=== PATIENT | female | born 1975 | race Two or more races ===

== ENCOUNTER 2025-08-15 17:22 | Inpatient (IN) | payer BC, OTHER ==
[~2025-08-15] VITALS: Ht 154.9 cm; Wt 59.0 kg
--- NOTE | 2025-08-15 17:59 | ED.PDOC ---
History of Present Illness HPI Comments 49 y/o Vincentian-speaking F is BIBA for c/c nonradiating, diffused abdominal pain, nausea, and vomiting. Patient endorses on sudden, unprovoked, and atraumatic onset of symptoms 10 hours ago. Pain is stated to be constant in quality. No reported recent travel, sick contact, spoiled food consumption, or further pertinent events or history. Denies on having any bilious or bloody vomitus, diarrhea, fever, chills, or further associated symptoms. Per EMS report, patient's vitals were within normal limits. Chief Complaint: Nausea/Vomiting Time Seen by MD: 17:45 Reviewed Notes: Nurses Notes, Political Science Faculty Member Notes, Medications, Allergies Home Meds Active Scripts Acetaminophen (Acetaminophen) 500 Mg Tab, 500 MG PO Q4HP PRN, #30 TAB Prov:MAYRA HANEY PAC 08/15/25 Ondansetron Odt 4MG Tab (ZOFRAN PO) 4 Mg Tb, 4 MG PO Q6HP PRN, #15 TAB ODT TAB-DISSOLVE IN MOUTH, THEN SWALLOW Prov:MAYRA HANEY PAC 08/15/25 Metoclopramide Hcl (Reglan) 10 Mg Tab, 10 MG PO Q8HP PRN, #15 TAB Prov:MAYRA HANEY [facility] 08/15/25 Information Source: Patient, Emergency Med Personnel Mode of Arrival: EMS Severity: Moderate Timing: Hours Duration: Since onset Prehospital treatment: 12 Lead EKG, Accucheck, Window Tinter Past Medical History PAST MEDICAL HISTORY: DM, HTN, Denies Surgical History: Denies all surgeries 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 Hx Family History Family History: Unknown Social History Smoker: Non-Smoker Alcohol: Denies ETOH Use Drugs: Denies Drug Use Lives In: Home Constitutional: denies: chills, diaphoresis, fatigue, fever, malaise, sweats, weakness, others EENTM: denies: blurred vision, double vision, ear bleeding, ear discharge, ear drainage, ear pain, ear ringing, eye pain, eye redness, hearing loss, mouth pain, mouth swelling, nasal discharge, nose bleeding, nose congestion, nose pain, photophobia, tearing, throat pain, throat swelling, voice changes, others Respiratory: denies: cough, hemoptysis, orthopnea, SOB at rest, shortness of breath, SOB with excertion, stridor, wheezing, others Cardiovascular: denies: chest pain, dizzy spells, diaphoresis, Dyspnea on exertion, edema, irregular heart beat, left arm pain, lightheadedness, palpitations, PND, syncope, others Gastrointestinal: reports: abdominal pain, nausea, vomiting; denies: abdomen distended, blood streaked bowels, constipated, diarrhea, dysphagia, difficulty swallowing, hematemesis, melena, poor appetite, poor fluid intake, rectal bleeding, rectal pain, others Genitourinary: denies: abnormal vagina bleeding, burning, dyspareunia, dysuria, flank pain, frequency, hematuria, incontinence, pain, , vagina discharge, urgency, others Neurological: denies: dizziness, fainting, headache, left sided numbness, left sided weakness, numbness, paresthesia, pre-existing deficit, right sided numbness, right sided weakness, seizure, speech problems, tingling, tremors, weakness, others Musculoskeletal: denies: back pain, gout, joint pain, joint swelling, muscle pain, muscle stiffness, neck pain, others Integumetry: denies: bruises, change in color, change in hair/nails, dryness, laceration, lesions, lumps, rash, wounds, others Allergic/Immunocompromised: denies: Difficulty Healing, Frequent Infections, Hives, Itching, others Hematologic/Lymphatic: denies: anemia, blood clots, easy bleeding, easy bruising, swollen glands, others Endocrine: denies: excessive hunger, excessive sweating, excessive thirst, excessive urination, flushing, intolerance to cold, intolerance to heat, unexplained weight gain, unexplained weight loss, others Psychiatric: denies: anxiety, bipolar disorder, depression, hopeless, panic disorder, schizophrenia, sleepless, suicidal, others All Other Systems: Reviewed and Negative (Comprehensive systems review obtained and negative except for what is stated in the HPI.) Physical Exam General Appearance: Moderate Distress (Patient was vomiting at time of evaluation and looked moderately toxic.), Normal HEENT: Normal ENT Inspection, Pharynx Normal, TMs Normal Neck: Full Range of Motion, Non-Tender, Normal, Normal Inspection Respiratory: Chest Non-Tender, Lungs Clear, No Accessory Muscle Use, No Respiratory Distress, Normal Breath Sounds Cardiovascular: No Edema, No JVD, No Murmur, No Gallop, Normal Peripheral Pulses, Regular Rate/Rhythm Breast Exam: Deferred Gastrointestinal: Other (Diffuse epigastric tenderness to palpation. Abdomen was mildly rigid. No pulsatile masses.) Genitalia: Deferred Pelvic: Deferred Rectal: Deferred Extremities: No calf tenderness, Normal inspection Neurologic: Alert Cerebellar Function: NOT DONE Reflexes: NOT DONE Skin: Dry, Normal Color, Warm Lymphatic: No Adenopathy Was a procedure done? Was a procedure done?: No Differential Dx Considerations may include: Gastritis, gastroenteritis, food poisoning, electrolyte abnormality, sepsis, UTI, influenza, COVID-19 X-Ray, Labs, Meds, VS Vital Signs Date Time Temp Pulse Resp B/P (MAP) Pulse Ox O2 Delivery O2 Flow Rate FiO2 08/16/25 00:02 98.4 111 18 112/61 (78) 98 98.4 08/15/25 22:36 17 Room Air* 0 21 08/15/25 21:43 98.4 110 18 90/53 (65) 98 98.4 08/15/25 19:54 98.4 101 18 121/68 (85) 98 98.4 08/15/25 17:22 99.7 68 20 141/68 98 99.7 Lab Test 08/16/25 01:41 08/16/25 00:09 08/15/25 22:19 08/15/25 19:02 Range/Units Beta-Hydroxybutyric Acid 2.274 H < 0.4 mmol/L POC Glucose 305 H 333 H 70-106 mg/dl Influenza Type A Antigen Negative Negative Influenza Type B Antigen Negative Negative SARS-CoV-2 Antigen (Rapid) Negative NEGATIVE Test 08/15/25 18:17 08/15/25 17:48 Range/Units White Blood Count 8.5 4.4-10.8 10^3/uL Red Blood Count 4.56 4.0-5.20 10^6/uL Hemoglobin 13.8 12.2-16.2 g/dL Hematocrit 40.9 36.0-46.0 % Mean Corpuscular Volume 89.6 80.0-100.0 fL Mean Corpuscular Hemoglobin 30.2 28.0-32.0 pg Mean Corpuscular Hemoglobin Concent 33.7 32.0-36.0 g/dL Red Cell Distribution Width 12.8 11.8-14.3 % Platelet Count 248 140-450 10^3/uL Mean Platelet Volume 8.9 6.9-10.8 fL Neutrophils (%) (Auto) 87.6 H 37.0-80.0 % Lymphocytes (%) (Auto) 9.4 L 10.0-50.0 % Monocytes (%) (Auto) 2.3 0.0-12.0 % Eosinophils (%) (Auto) 0.1 0.0-7.0 % Basophils (%) (Auto) 0.6 0.0-2.0 % Neutrophils # (Auto) 7.4 1.6-8.6 10 ^3/uL Lymphocytes # (Auto) 0.8 0.4-5.4 10 ^3/uL Monocytes # (Auto) 0.2 0-1.3 10 ^3/uL Eosinophils # (Auto) 0 0-0.8 10 ^3/uL Basophils # (Auto) 0.1 0-0.2 10 ^3/uL Nucleated Red Blood Cells 0.0 % Sodium Level 137 136-145 mmol/L Potassium Level 3.6 3.5-5.1 mmol/L Chloride Level 102 98-107 mmol/L Carbon Dioxide Level 18 L 20-31 mmol/L Anion Gap 17 H 5-15 Blood Urea Nitrogen 11 9-23 mg/dL Creatinine 0.65 0.550-1.02 mg/dL Glomerular Filtration Rate Calc 107 >90 mL/min BUN/Creatinine Ratio 16.9 10.0-20.0 Serum Glucose 309 H 74-106 mg/dL Calcium Level 9.4 8.7-10.4 mg/dL B-Type Natriuretic Peptide 81.02 0-100 pg/mL Lipase 27 12-53 U/L Urine Color Light-yellow Yellow Urine Clarity Clear Clear Urine pH 5.5 5.0-9.0 Urine Specific [place] 1.030 1.001-1.035 Urine Protein Negative Negative Urine Ketones 4+ H Negative Urine Blood Negative Negative /uL Urine Nitrite Negative Negative Urine Bilirubin Negative Negative Urine Urobilinogen Normal Negative mg/dL Urine Leukocyte Esterase Negative Negative /uL Urine RBC 1 0 - 4 /hpf Urine Microscopic WBC 5 0-5 /HPF Urine Squamous Epithelial Cells Few <5 /hpf Urine Bacteria None seen None Seen /hpf Urine Glucose 4+ H Normal mg/dL Urine Test Negative Negative Current Medications Medications (Trade) Dose Ordered Sig/Lelo Route Start Time Stop Time Status Last Admin Metoclopramide HCl (Reglan Injection) 10 mg ONCE ONCE IM 08/15/25 18:15 08/15/25 18:16 DC 08/15/25 18:31 Sodium Chloride 1,000 ml @ 1,000 mls/hr Q1H ONCE IV 08/15/25 21:45 08/15/25 22:44 DC 08/15/25 21:48 Insulin Human Regular (InsuLIN R) 10 units ONCE ONCE SC 08/15/25 22:30 08/15/25 22:31 DC 08/15/25 22:33 X-Ray, Labs, Meds, VS Comment All studies performed the ED were evaluated by me personally. Serum studies were unremarkable for any systemic concerns as was urinalysis. Swabs unremarkable for COVID or influenza. Patient responded well to medication dispensed. Patient appears to be suffering from a viral gastroenteritis event. Advised patient utilize medication as needed for symptomatic relief as well as good hydration and healthy nutrition throughout illness event. Discussed with MEGAN Claire, patient is given 2 L normal saline bolus, given 10 units insulin, patient's iron gap still elevated and beta hydroxybutyrate still elevated. Concerns of possible DKA. Patient be admitted for further evaluation. Patient clinically stable. Time of 1ST Reevaluation: 21:24 Reevaluation 1ST: Improved Consultation: PCP Patient Education/Counseling: Diagnosis, Treatment, Need For Follow Up Family Education/Counseling: Diagnosis, Treatment, No Family Present SEPSIS Sepsis Screen Date sepsis recognized/suspect: Aug 15, 2025 Time Sepsis recognized/suspect: 1721 Recent Procedure: No On Antibiotic Therapy: No Respiratory Rate >20: No Heart Rate >90: No Temp<36 C (96.8 F) or >38.3 C: No SBP <90 or MAP <65 mmHG: No New Acute Mental Status Change: No Is the patient on CPAP, BIPAP,: No Physician Orders Sodium Chloride 0.9% (08/16/25 00:15) Vital Signs Date Time Temp Pulse Resp B/P (MAP) Pulse Ox O2 Delivery O2 Flow Rate FiO2 08/16/25 00:02 98.4 111 18 112/61 (78) 98 98.4 08/15/25 22:36 17 Room Air* 0 21 08/15/25 21:43 98.4 110 18 90/53 (65) 98 98.4 08/15/25 19:54 98.4 101 18 121/68 (85) 98 98.4 08/15/25 17:22 99.7 68 20 141/68 98 99.7 Laboratory Tests Test 08/15/25 18:17 White Blood Count 8.5 10^3/uL (4.4-10.8) Medications Medications Dose Ordered Sig/Lelo Route Start Time Stop Time Status Last Admin Dose Admin Insulin Human Regular 10 units ONCE ONCE SC 08/15/25 22:30 08/15/25 22:31 DC 08/15/25 22:33 Metoclopramide HCl 10 mg ONCE ONCE IM 08/15/25 18:15 08/15/25 18:16 DC 08/15/25 18:31 Sodium Chloride 1,000 ml @ 1,000 mls/hr Q1H ONCE IV 08/15/25 21:45 08/15/25 22:44 DC 08/15/25 21:48 Departure 1 Departure Time of Disposition: 21:24 Impression: Primary Impression: Viral gastroenteritis Disposition: HOME / SELF CARE / HOMELESS Condition: Stable Additional Instructions: Advised patient utilize medication as needed for symptomatic relief as well as good hydration and healthy nutrition throughout illness event. e-Prescriptions Acetaminophen (Acetaminophen) 500 Mg Tab 500 MG PO Q4HP PRN, #30 TAB Prov: MAYRA HANEY 08/15/25 Ondansetron Odt 4MG Tab (ZOFRAN PO) 4 Mg Tb 4 MG PO Q6HP PRN, #15 TAB ODT TAB-DISSOLVE IN MOUTH, THEN SWALLOW Prov: MAYRA HANEY 08/15/25 Metoclopramide Hcl (Reglan) 10 Mg Tab 10 MG PO Q8HP PRN, #15 TAB Prov: MAYRA HANEY [facility] 08/15/25 Discharged With: Self, Friend Critical Care Note Critical Care Time?: No Stability Stability form required: No Heart Score Heart Score: Heart Score Response (Comments) Value History N/A 0 EKG N/A 0 Age N/A 0 Risk Factors N/A 0 Troponin N/A 0 Total 0 I personally scribed for MAYRA HANEY ([email or web address]) on 08/15/25 at 17:59. Electronically submitted by Avinash Love ([email or web address]). MAYRA HANEY Aug 15, 2025 17:59 MARCUS ROBERTS Aug 16, 2025 02:56
[2025-08-15] MEDS: METOCLOPRAMIDE HCL 5MG/ml INJ 2ml VIAL IM ONE (18:31)
[2025-08-15] MEDS: ACETAMINOPHEN 325 MG TAB PO ONE (18:31)
[2025-08-15 18:38] LABS: Hematocrit 40.9 % (36.0-46.0); Hemoglobin 13.8 g/dL (12.2-16.2); Mean Corpuscular Hemoglobin 30.2 pg (28.0-32.0); Mean Corpuscular Volume 89.6 fL (80.0-100.0); Nucleated Red Blood Cells % 0.0 %
[2025-08-15 18:42] LABS: Urine Protein, UAD Negative (Negative)
[2025-08-15 18:45] LABS: Chloride 102 mmol/L (98-107); Potassium 3.6 mmol/L (3.5-5.1); Sodium 137 mmol/L (136-145)
[2025-08-15 18:46] LABS: Anion Gap 17 (5-15); Calcium 9.4 mg/dL (8.7-10.4)
[2025-08-15 18:51] LABS: BUN/Creatinine Ratio 16.9 (10.0-20.0); Blood Urea Nitrogen 11 mg/dL (9-23); Lipase 27 U/L (12-53)
[2025-08-15 18:53] LABS: Carbon Dioxide 18 mmol/L (20-31); Glucose 309 mg/dL (74-106)
[2025-08-15 19:03] LABS: COVID19 ANTIGEN SOFIA FIA NEGATIVE (NEGATIVE)
[2025-08-15] MEDS ORDERED: ZOFR4T PO (21:26)
[2025-08-15] MEDS ORDERED: ACET500T58 PO (21:26)
[2025-08-15] MEDS ORDERED: METO-281 PO (21:26)
[2025-08-15] MEDS: SODIUM CHLORIDE 0.9% 1,000 ML IV ONE (21:48)
[2025-08-15] MEDS: InsuLIN REG 1unit/0.01ml Soln (100units/ml) SC ONE (22:33)
[2025-08-15 22:36] VITALS: RESP 17
[2025-08-16] MEDS ORDERED: DEXTROSE (50%) 50ML SYRG IV PRN (03:15)
[2025-08-16] MEDS ORDERED: ACETAMINOPHEN 325 MG TAB PO PRN (03:15)
[2025-08-16] MEDS ORDERED: HYDROcodone-ACET 5/325MG TAB PO PRN (03:15)
[2025-08-16] MEDS ORDERED: DOCUSATE SOD 100 MG CAP PO PRN (03:15)
[2025-08-16] MEDS ORDERED: ONDANSETRON HCL 4 MG/2 ML VIAL IV PRN (03:15)
[2025-08-16] MEDS: SODIUM CHLORIDE 0.9% 1,000 ML IV ONE (03:26)
[2025-08-16 03:30] VITALS: PULSE 83; RESP 11; O2SAT 98
[2025-08-16] MEDS: SODIUM CHLORIDE 0.9% 500 ML IV ONE (03:49)
[2025-08-16] MEDS: SODIUM CHLORIDE 0.9% 1,000 ML IV SCH (03:53)
[2025-08-16] MEDS: ACCU-CHEK COMFORT CURVE STRIP VI SCH (03:54)
[2025-08-16] MEDS: InsuLIN REG 1unit/0.01ml Soln (100units/ml) SC SCH (03:57)
[2025-08-16 04:21] LABS: Hematocrit 33.8 % (36.0-46.0); Hemoglobin 11.7 g/dL (12.2-16.2); Mean Corpuscular Hemoglobin 30.9 pg (28.0-32.0); Mean Corpuscular Volume 89.4 fL (80.0-100.0); Nucleated Red Blood Cells % 0.0 %
[2025-08-16 04:33] LABS: Alanine Aminotransferase 10 U/L (7-40); Albumin 3.5 g/dL (3.2-4.8); Alkaline Phosphatase 80 U/L (46-116); Anion Gap 12 (5-15); BUN/Creatinine Ratio 19.7 (10.0-20.0); Blood Urea Nitrogen 12 mg/dL (9-23); Carbon Dioxide 20 mmol/L (20-31); Sodium 143 mmol/L (136-145); Total Protein 6.1 g/dL (5.7-8.2)
[2025-08-16 04:34] LABS: Bilirubin, Total 0.7 mg/dL (0.2-1.0)
[2025-08-16 04:36] LABS: Calcium 8.5 mg/dL (8.7-10.4); Chloride 111 mmol/L (98-107); Glucose 224 mg/dL (74-106); Potassium 3.5 mmol/L (3.5-5.1)
[2025-08-16] MEDS ORDERED: MORPHINE SULFATE INJ 2 MG/ml SYRG IV PRN (04:45)
[2025-08-16] MEDS ORDERED: NITROGLYCERIN 0.4 MG SL TAB SL PRN (04:45)
[2025-08-16] MEDS: PANTOPRAZOLE 40 MG/10 ML VIAL INJ IV ONE (04:45)
--- NOTE | 2025-08-16 04:49 | DVHHP2 ---
History of Present Illness Reason for Visit: Acute abdominal pain History of Present Illness The patient is a 49-year-old female with past medical history of diabetes mellitus and hypertension who presented to [facility] ED with complaint of acute abdominal pain. Patient reports she has been experiencing diffuse abdominal pain rating 9/10 numeric scale, nonradiating, associated with nausea and vomiting. Patient was seen and evaluated in the ED, laboratory data shows WBC 8.5, platelets 248, sodium 137, potassium 3.6, BUN 11, creatinine 0.65, glucose 309, anion gap 17, calcium 9.4, acetone 2.274, BNP 81.02, blood pressure 112/61, heart rate 110, temperature 98.4 F, O2 saturation 98% on room air. Please see medication orders section in the computer. On my assessment, patient denied chest pain, no headache, dizziness, diaphoresis, shortness of breaths, no abdominal pain, nausea or vomiting at this moment, no diarrhea, fever, no chills. Patient was admitted for further evaluation and medical management. Past Medical History DM, HTN, Past Surgical History Denies all surgeries Family History Reviewed, noncontributory to the management of this case. Past Social History The patient lives at home, denies smoking, alcohol or illicit drugs abuse. Review of Systems Constitutional: Yes: Weakness; No: Fever, Chills, Sweats, Malaise, Other Eyes: No: Pain, Vision change, Conjunctivae inflammation, Eyelid inflammation, Other, Redness ENT: No: Ear pain, Ear discharge, Nose pain, Nose discharge, Nose congestion, Mouth pain, Mouth swelling, Throat pain, Throat swelling, Other Respiratory: No: Cough, Dry, Shortness of breath, SOB with excertion, Wheezing, Hemoptysis, Pleuritic Pain, Sputum, Wheezing, Other Cardiovascular: No: Chest Pain, Palpitations, Orthopnea, Paroxysmal Noc. Dyspnea, Edema, Lt Headedness, Other Gastrointestinal: Nausea, Vomiting, Abdominal Pain; No: Diarrhea, Constipation, Melena, Hematochezia, Other Genitourinary: No Dysuria, No Frequency, No Incontinence, No Hematuria, No Retention, No Other Musculoskeletal: No: other, neck pain, shoulder pain, arm pain, back pain, hand pain, leg pain, foot pain Skin: No: Rash, Lesions, Jaundice, Bruising, Other Neurological: No: Weakness, Numbness, Incoordination, Change in speech, Confusion, Seizures, Other Allergies: Coded Allergies: No Known Drug Allergy (Verified Allergy, Unknown, 08/16/25) Medications Current Medications Medications Dose Ordered Sig/Lelo Route Start Time Stop Time Status Last Admin Dose Admin Diagnostic Test (Pha) 1 strip IQ4HR 08/16/25 04:00 08/16/25 03:54 1 STRIP Insulin Human Regular IQ4HR SC 08/16/25 04:00 08/16/25 03:57 8 UNITS Dextrose 50 ml UD PRN IV 08/16/25 03:15 Sodium Chloride 1,000 ml @ 120 mls/hr Q8H20M IV 08/16/25 03:15 08/16/25 03:53 120 MLS/HR Acetaminophen/ Hydrocodone Bitart 1 tab Q4HP PRN PO 08/16/25 03:15 Ondansetron HCl 4 mg Q4HP PRN IV 08/16/25 03:15 Docusate Sodium 100 mg BIDPRN PRN PO 08/16/25 03:15 Acetaminophen 650 mg Q6HP PRN PO 08/16/25 03:15 Exam Vital Signs Vital Signs Date Time Temp Pulse Resp B/P (MAP) Pulse Ox O2 Delivery O2 Flow Rate FiO2 08/16/25 03:30 98.6 85 10 121/65 (83) 98 98.6 08/16/25 03:30 Room Air* 0 21 General Appearance: Alert, Oriented X3, Cooperative, No acute distress HEENT: Atraumatic, PERRLA, EOMI, Mucous membr. moist/pink Respiratory: Normal air movement Cardiovascular: Regular rate, Normal S1, Normal S2, No murmurs Abdominal: Normal bowel sounds, Soft, No tenderness, No hepatospenomegaly, No masses Extremities: No clubbing, No cyanosis, No edema, Normal pulses, No tenderness/swelling Skin: No rashes, No significant lesion Neuro: Normal speech, Normal tone, Sensation intact, Cranial nerves 3-12 NL, Reflexes 2+, Other (Weakness) Psych/Mental Status: Mental status NL, Mood NL Labs/Xrays Labs Test 08/16/25 03:59 08/16/25 03:42 08/16/25 01:41 08/15/25 19:02 Range/Units White Blood Count 7.9 4.4-10.8 10^3/uL Red Blood Count 3.78 L 4.0-5.20 10^6/uL Hemoglobin 11.7 #L 12.2-16.2 g/dL Hematocrit 33.8 #L 36.0-46.0 % Mean Corpuscular Volume 89.4 80.0-100.0 fL Mean Corpuscular Hemoglobin 30.9 28.0-32.0 pg Mean Corpuscular Hemoglobin Concent 34.5 32.0-36.0 g/dL Red Cell Distribution Width 12.6 11.8-14.3 % Platelet Count 208 140-450 10^3/uL Mean Platelet Volume 8.6 6.9-10.8 fL Neutrophils (%) (Auto) 74.5 37.0-80.0 % Lymphocytes (%) (Auto) 16.1 10.0-50.0 % Monocytes (%) (Auto) 9.0 0.0-12.0 % Eosinophils (%) (Auto) 0.0 0.0-7.0 % Basophils (%) (Auto) 0.4 0.0-2.0 % Neutrophils # (Auto) 5.9 1.6-8.6 10 ^3/uL Lymphocytes # (Auto) 1.3 0.4-5.4 10 ^3/uL Monocytes # (Auto) 0.7 0-1.3 10 ^3/uL Eosinophils # (Auto) 0 0-0.8 10 ^3/uL Basophils # (Auto) 0 0-0.2 10 ^3/uL Nucleated Red Blood Cells 0.0 % POC Glucose 214 H 70-106 mg/dl Beta-Hydroxybutyric Acid 2.274 H < 0.4 mmol/L Influenza Type A Antigen Negative Negative Influenza Type B Antigen Negative Negative SARS-CoV-2 Antigen (Rapid) Negative NEGATIVE Test 08/15/25 18:17 08/15/25 17:48 Range/Units B-Type Natriuretic Peptide 81.02 0-100 pg/mL Lipase 27 12-53 U/L Urine Color Light-yellow Yellow Urine Clarity Clear Clear Urine pH 5.5 5.0-9.0 Urine Specific [place] 1.030 1.001-1.035 Urine Protein Negative Negative Urine Ketones 4+ H Negative Urine Blood Negative Negative /uL Urine Nitrite Negative Negative Urine Bilirubin Negative Negative Urine Urobilinogen Normal Negative mg/dL Urine Leukocyte Esterase Negative Negative /uL Urine RBC 1 0 - 4 /hpf Urine Microscopic WBC 5 0-5 /HPF Urine Squamous Epithelial Cells Few <5 /hpf Urine Bacteria None seen None Seen /hpf Urine Glucose 4+ H Normal mg/dL Urine Test Negative Negative SEPSIS Sepsis Screen Date sepsis recognized/suspect: Aug 16, 2025 Time Sepsis recognized/suspect: 332 Recent Procedure: No On Antibiotic Therapy: No Respiratory Rate >20: No Heart Rate >90: No Temp<36 C (96.8 F) or >38.3 C: No SBP <90 or MAP <65 mmHG: No New Acute Mental Status Change: No Is the patient on CPAP, BIPAP,: No Physician Orders Comprehensive Metabolic Panel (08/16/25 04:00) Consistent Carb(Ccho)Diabetes (08/16/25 Breakfast) Glucose Blood (Accu-Chek Comfort Curve T (08/16/25 04:00) Insulin R (Human) (Insulin R) (08/16/25 04:00) Dextrose 50% Syringe (08/16/25 03:15) Allergies (08/16/25 03:08) Code Status (08/16/25 03:08) Sodium Chloride 0.9% (08/16/25 03:15) Oxygen Per Hour (08/16/25 03:08) Hydrocodone-Acet 5/325mg Tab (Rosebud 5/32 (08/16/25 03:15) Ondansetron Hcl (Zofran) (08/16/25 03:15) Docusate Sodium Capsule (Colace Capsule) (08/16/25 03:15) Complete Blood Count (08/17/25 04:00) Comprehensive Metabolic Panel (08/17/25 04:00) Condition: Serious (08/16/25 03:08) Acetaminophen Tablet (Tylenol Tablet) (08/16/25 03:15) Bedrest With Bathroom Privileg (08/16/25 03:08) Sequential Compression Device (08/16/25 ) Vital Signs Date Time Temp Pulse Resp B/P (MAP) Pulse Ox O2 Delivery O2 Flow Rate FiO2 08/16/25 03:30 98.6 85 10 121/65 (83) 98 98.6 08/16/25 03:30 83 11 98 Room Air* 0 21 08/16/25 03:05 98.9 104 18 92/45 (61) 99 98.9 08/16/25 00:02 98.4 111 18 112/61 (78) 98 98.4 08/15/25 22:36 17 Room Air* 0 21 08/15/25 21:43 98.4 110 18 90/53 (65) 98 98.4 Laboratory Tests Test 08/15/25 18:17 08/16/25 03:59 White Blood Count 8.5 10^3/uL (4.4-10.8) 7.9 10^3/uL (4.4-10.8) Medications Medications Dose Ordered Sig/Lelo Route Start Time Stop Time Status Last Admin Dose Admin Diagnostic Test (Pha) 1 strip IQ4HR 08/16/25 04:00 08/16/25 03:54 1 STRIP Insulin Human Regular IQ4HR SC 08/16/25 04:00 08/16/25 03:57 8 UNITS Insulin Human Regular 10 units ONCE ONCE SC 08/15/25 22:30 08/15/25 22:31 DC 08/15/25 22:33 10 UNITS Metoclopramide HCl 10 mg ONCE ONCE IM 08/15/25 18:15 08/15/25 18:16 DC 08/15/25 18:31 10 MG Sodium Chloride 500 ml @ 500 mls/hr Q1H ONCE IV 08/16/25 03:15 08/16/25 04:14 DC 08/16/25 03:49 500 MLS/HR Sodium Chloride 1,000 ml @ 120 mls/hr Q8H20M IV 08/16/25 03:15 08/16/25 03:53 120 MLS/HR Sodium Chloride 1,000 ml @ 1,000 mls/hr Q1H ONCE IV 08/15/25 21:45 08/15/25 22:44 DC 08/15/25 21:48 1,000 MLS/HR Sodium Chloride 1,000 ml @ 1,000 mls/hr Q1H ONCE IV 08/16/25 00:15 08/16/25 03:17 DC 08/16/25 03:26 1,000 MLS/HR Assessment/Plan Assessment/Plan Acute abdominal pain Intractable nausea and vomiting Diabetes mellitus with hyperglycemia Generalized weakness Plan 1. Admit to telemetry unit 2. Breathing treatment 3. Pain control management 4. Management of fluids and electrolytes 5. Consultation for hospitalist 6. Diagnostic tests abdomen CT 7. DVT prophylaxis on SCDs 8. Repeat labs CBC, CMP in a.m. 9. Continue with current medical management 10. Treatment plan discussed with patient and RN. Patient verbalized understanding. Plan discussed with: Patient, Other (RN) My Orders Orders - TIFFANY GARRETT DNP Procedure Category Date Status Time Comprehensive LAB 08/16/25 In Process Metabolic Panel 04:00 Consistent DIET 08/16/25 Transmitted Carb(Ccho)Diabetes Breakfast Glucose Blood PHA 08/16/25 In Process (Accu-Chek Comfort 04:00 Insulin R (Human) PHA 08/16/25 In Process (Insulin R) 04:00 Dextrose 50% Syringe PHA 08/16/25 In Process 03:15 Allergies EDUARDO 08/16/25 In Process 03:08 Code Status CODE 08/16/25 Transmitted 03:08 Sodium Chloride 0.9% PHA 08/16/25 In Process 03:15 Oxygen Per Hour RT 08/16/25 Transmitted 03:08 Hydrocodone-Acet PHA 08/16/25 In Process 5/325mg Tab (Rosebud 03:15 Ondansetron Hcl PHA 08/16/25 In Process (Zofran) 03:15 Docusate Sodium PHA 08/16/25 In Process Capsule (Colace 03:15 Complete Blood Count LAB 08/17/25 Verified 04:00 Comprehensive LAB 08/17/25 Verified Metabolic Panel 04:00 Condition: Serious EDUARDO 08/16/25 In Process 03:08 Acetaminophen Tablet PHA 08/16/25 In Process (Tylenol Tablet) 03:15 Bedrest With Bathroom EDUARDO 08/16/25 In Process Privileg 03:08 Sequential EDUARDO 08/16/25 In Process Compression Device Problem List: (1) Acute abdominal pain (2) Intractable nausea and vomiting (3) Diabetes mellitus with hyperglycemia (4) Generalized weakness Date of Service: Aug 16, 2025 Billing Provider: TIFFANY GARRETT DNP Common Visit Codes: [id number] INP/OBS CARE (HIGH) TIFFANY GARRETT DNP Aug 16, 2025 04:49
[2025-08-16 05:53] VITALS: BP 111/61; PULSE 88; RESP 16; TEMP 98.5; O2SAT 100
[2025-08-16] MEDS ORDERED: METF-371 PO (06:55)
[2025-08-16] MEDS ORDERED: GLIP10TA9 PO (06:55)
--- NOTE | 2025-08-16 08:23 | DVH ---
Indication: Acute abdominal pain Technique: CT axial images of the abdomen and pelvis are obtained without contrast. Coronal and sagit arslan reformats were obtained. Radiation Dose Information: CTDI volume is 5.51 mGy. Dose-length product is 276 mGy*cm Comparison: None FINDINGS: There is limited interpretation of the abdomen and pelvis without administration of intravenous contr ast. Lung bases demonstrate no pleural effusion. 3 mm left lower lobe pulmonary nodule. Adrenal glands, spleen, pancreas unremarkable in shape. Cholelithiasis. Liver unremarkable in shape. Kidneys demonstrate no hydronephrosis/ nephrolithiasis. Stomach is partially distended. Small bowel loops are normal in caliber. Mild bowel wall thickening of the colon diffusely. Normal appendix. Abdominal aortic atherosclerotic disease. Bladder distended. Trace free pelvic fluid. No inguinal lym phadenopathy. Soft tissue edema / anasarca. No aggressive osseous process. Mild thoracolumbar degenerative disc disease. Right L5 pars defect. IMPRESSION: Limited evaluation without contrast. Mild diffuse colonic wall thickening. Correlate for colitis, inflammatory bowel disease. Distended bladder. Cholelithiasis. Soft tissue edema/anasarca. Trace free pelvic fluid. Atherosclerotic disease. Meter left lower lobe pulmonary nodule. Recommend follow-up per Fleischner society criteria. Other findings as described.
[2025-08-16 09:00] VITALS: BP 105/58; PULSE 91; RESP 17; TEMP 98.5; O2SAT 99
[2025-08-16] MEDS: PANTOPRAZOLE 40 MG/10 ML VIAL INJ IV SCH (10:00)
[2025-08-16 12:37] VITALS: BP 108/51; PULSE 85; RESP 17; TEMP 98.9; O2SAT 97
[2025-08-16] MEDS ORDERED: AUG875T PO (16:44)
--- NOTE | 2025-08-16 16:53 | DVHDS2 ---
Discharge Summary Date of Admission Aug 16, 2025 at 04:33 Date of Discharge: Aug 16, 2025 Labs/Diagnostic Data: Laboratory Results Test 08/16/25 11:42 08/16/25 03:59 08/16/25 01:41 08/15/25 19:02 POC Glucose 204 mg/dl (70-106) White Blood Count 7.9 10^3/uL (4.4-10.8) Red Blood Count 3.78 10^6/uL (4.0-5.20) Hemoglobin 11.7 g/dL (12.2-16.2) Hematocrit 33.8 % (36.0-46.0) Mean Corpuscular Volume 89.4 fL (80.0-100.0) Mean Corpuscular Hemoglobin 30.9 pg (28.0-32.0) Mean Corpuscular Hemoglobin Concent 34.5 g/dL (32.0-36.0) Red Cell Distribution Width 12.6 % (11.8-14.3) Platelet Count 208 10^3/uL (140-450) Mean Platelet Volume 8.6 fL (6.9-10.8) Neutrophils (%) (Auto) 74.5 % (37.0-80.0) Lymphocytes (%) (Auto) 16.1 % (10.0-50.0) Monocytes (%) (Auto) 9.0 % (0.0-12.0) Eosinophils (%) (Auto) 0.0 % (0.0-7.0) Basophils (%) (Auto) 0.4 % (0.0-2.0) Neutrophils # (Auto) 5.9 10 ^3/uL (1.6-8.6) Lymphocytes # (Auto) 1.3 10 ^3/uL (0.4-5.4) Monocytes # (Auto) 0.7 10 ^3/uL (0-1.3) Eosinophils # (Auto) 0 10 ^3/uL (0-0.8) Basophils # (Auto) 0 10 ^3/uL (0-0.2) Nucleated Red Blood Cells 0.0 % Sodium Level 143 mmol/L (136-145) Potassium Level 3.5 mmol/L (3.5-5.1) Chloride Level 111 mmol/L (98-107) Carbon Dioxide Level 20 mmol/L (20-31) Anion Gap 12 (5-15) Blood Urea Nitrogen 12 mg/dL (9-23) Creatinine 0.61 mg/dL (0.550-1.02) Glomerular Filtration Rate Calc 108 mL/min (>90) BUN/Creatinine Ratio 19.7 (10.0-20.0) Serum Glucose 224 mg/dL (74-106) Calcium Level 8.5 mg/dL (8.7-10.4) Total Bilirubin 0.7 mg/dL (0.2-1.0) Aspartate Amino Transferase (AST) 10 U/L (13-40) Alanine Aminotransferase (ALT) 10 U/L (7-40) Alkaline Phosphatase 80 U/L (46-116) Total Protein 6.1 g/dL (5.7-8.2) Albumin 3.5 g/dL (3.2-4.8) Beta-Hydroxybutyric Acid 2.274 mmol/L (< 0.4) Influenza Type A Antigen Negative (Negative) Influenza Type B Antigen Negative (Negative) SARS-CoV-2 Antigen (Rapid) Negative (NEGATIVE) Test 08/15/25 18:17 08/15/25 17:48 B-Type Natriuretic Peptide 81.02 pg/mL (0-100) Lipase 27 U/L (12-53) Urine Color Light-yellow (Yellow) Urine Clarity Clear (Clear) Urine pH 5.5 (5.0-9.0) Urine Specific [place] 1.030 (1.001-1.035) Urine Protein Negative (Negative) Urine Ketones 4+ (Negative) Urine Blood Negative /uL (Negative) Urine Nitrite Negative (Negative) Urine Bilirubin Negative (Negative) Urine Urobilinogen Normal mg/dL (Negative) Urine Leukocyte Esterase Negative /uL (Negative) Urine RBC 1 /hpf (0 - 4) Urine Microscopic WBC 5 /HPF (0-5) Urine Squamous Epithelial Cells Few /hpf (<5) Urine Bacteria None seen /hpf (None Seen) Urine Glucose 4+ mg/dL (Normal) Urine Test Negative (Negative) Other Laboratory Tests 08/16/25 03:59 Brief Hx & Hospital Course: 49-year-old female with a known history of diabetes mellitus type 2, hypertension presented to the hospital with the abdominal pain nausea and vomiting found to have colitis. CT abdomen and pelvis shows evidence of colitis. Patient is currently tolerating diet and requesting to go home. Patient will be discharged on p.o. antibiotics with a close follow up as an outpatient with the PCP as well as Gastroenterology. Patient does have left lung nodule which is 3 mm outpatient follow up with the PCP. Condition at Discharge: Stable Final Diagnosis/Problems List 1. Abdominal pain with the nausea and vomiting, resolved 2. Colitis 3. Diabetes mellitus type 2 4. Hypertension 5. Left lung nodule 3 mm, outpatient follow up with the PCP. Discharge Disposition: Home SNF Discharge Will this Physician continue t: No Discharge Instruct/Medications Diet: Cardiac 2g Na,low cholest Diet comment: 1999 ADA diet Activity: No Restrictions, As Tolerated Follow Up/Referral: Follow up with the PCP in one week Follow up with the GI doctor Phillip Montoya in 1-2 weeks Medications: Augmentin as prescribed. New Medications: Amoxicillin & Pot Clavulanate (Augmentin Tablet) 875 Mg Tb 875 MG PO BID for 10 Days, #20 TAB Continued Medications: Acetaminophen (Acetaminophen) 500 Mg Tab 500 MG PO Q4HP PRN, #30 TAB Glipizide (Glipizide) 10 Mg Tab 10 MG PO DAILY, TAB Metformin Hydrochloride (Metformin Hcl) 850 Mg Tab 1 TAB PO BID, #180 TAB 3 Refills Metoclopramide Hcl (Reglan) 10 Mg Tab 10 MG PO Q8HP PRN, #15 TAB Ondansetron Odt 4MG Tab (Zofran Po) 4 Mg Tb 4 MG PO Q6HP PRN, #15 TAB ODT TAB-DISSOLVE IN MOUTH, THEN SWALLOW Scheduled Amoxicillin & Pot Clavulanate (Augmentin Tablet), 875 MG PO BID Glipizide (Glipizide), 10 MG PO DAILY, (Reported) Metformin Hydrochloride (Metformin Hcl), 1 TAB PO BID, (Reported) Scheduled PRN Acetaminophen (Acetaminophen), 500 MG PO Q4HP PRN Metoclopramide Hcl (Reglan), 10 MG PO Q8HP PRN Ondansetron Odt 4MG Tab (Zofran Po), 4 MG PO Q6HP PRN Discharge Statement: "Patient was advised to return to the ER or call 911 if any headaches, dizziness, shortness of breath, chest pain, abdominal pain, bleeding, fevers, or worsening of medical condition. Patient was counseled about treatment plan, medications, possible side effects, patientverbalized understanding. All questions were answered to the best of my ability. This discharge took greater then 30 minutes in planning, reviewing documentation, counseling the patient, and discussing with other team members." ASSESSMENT ASSESSMENT Assessment 1. Abdominal pain with the nausea and vomiting, resolved 2. Colitis 3. Diabetes mellitus type 2 4. Hypertension Date of Service: Aug 16, 2025 Billing Provider: MICHELLE DE MD Common Visit Codes: 98654-HPR/OBS DISCH DAY >30min MICHELLE DE MD Aug 16, 2025 16:53
[2025-08-16] MEDS: AMOXICILLIN/CLAVUL 875 MG TAB PO ONE (16:58)
== END 2025-08-16 17:45 | disposition home or self-care (01) | DRG 392 ==
LOC: EDBD 17:22 → ER 17:22 → OVERFLOW 08-16 04:33
PROVIDERS: ADMIT Nurse Practitioner Family; ATTEND Nurse Practitioner Family
DX: A08.4 Viral intestinal infection, unspecified (principal); E11.65 Type 2 diabetes mellitus with hyperglycemia; I10 Essential (primary) hypertension; R91.1 Solitary pulmonary nodule; Z20.822 Contact with and (suspected) exposure to COVID-19; Z79.899 Other long term (current) drug therapy
CPT/HCPCS: 36415; 74176; 80048; 80053; 81001; 81025; 82010; 82962; 83690; 83880; 85025; 87426; 87804; 96361; 96372; 96374; 96375; G0378; J1815; J2470